=== PATIENT | female | born 1975 | race American Indian/Alaskan Native ===

== ENCOUNTER 2017-08-13 15:53 | Emergency (ER) | payer SELFPAY ==
[2017-08-13] MEDS ORDERED: ASPIRIN PO ONE (16:05)
[2017-08-13 16:21] LABS: Basophils # (Auto) 0.1 K/mm3 (0.0-0.1); Basophils % (Auto) 0.8 % (0.0-1.8); Eosinophils # (Auto) 0.1 K/mm3 (0.0-0.4); Eosinophils % (Auto) 0.8 % (0.0-4.3); Hemoglobin 13.7 gm/dl (10.1-14.3); Lymphocytes # (Auto) 1.7 K/mm3 (1.2-5.4); Lymphocytes % (Auto) 24.1 % (13.4-35.0); Mean Corpuscular HGB Conc 33 % (30-34); Mean Corpuscular Hemoglobin 32 pg (28-32); Mean Corpuscular Volume 96 fl (79-97); Monocytes # (Auto) 0.6 K/mm3 (0.0-0.8); Monocytes % (Auto) 7.7 % (0.0-7.3); Platelet Count 206 K/mm3 (140-440); Red Blood Count 4.27 M/mm3 (3.65-5.03); Red Cell Distribution Width 13.1 % (13.2-15.2)
[2017-08-13 16:38] LABS: BUN/Creatinine Ratio 13; Blood Urea Nitrogen 8 mg/dL (7-17); Calcium 8.7 mg/dL (8.4-10.2); Hemolysis Index 8
[2017-08-14 00:29] LABS: Chol/HDL Ratio 2.17 %
[2017-08-14] MEDS ORDERED: K-DUR PO ONE (00:30)
--- NOTE | 2017-08-14 00:33 | Emergency Department Report ---
ED Chest Pain HPI - General Chief Complaint: Chest Pain Stated Complaint: CHEST HEAVINESS Time Seen by Provider: 08/13/17 23:09 Source: patient Mode of arrival: Ambulatory Limitations: No Limitations - History of Present Illness Initial Comments: 42-year-old female with a past psychiatric history and previous history of hypertension that has since resolved presents to the Hospital complaint of intermittent chest pressure since yesterday. Episodes occur at rest. Patient states she gets chest heaviness in throbbing and then extends to her whole torso , bilateral arms, and bilateral legs. Patient has chills during episodes and feels lightheaded and shaky. As per triage patient had nausea, vomiting, and shortness of breath and she denies those associated symptoms currently. Patient also feels like the left-sided body is abnormal. Her left neck down to her leg and feels like it is swollen. Patient does smoke cigarettes. Hypertensive in 2010 but has been discontinued since her blood pressure improved. She denies drug use including cocaine. Denies family history of CAD , recent travel, leg asymmetry or edema, history of PE/DVT, or previous stress test. Patient does have a psychiatric history and took psychiatric medication up until her medications ran out in April. She states she's been diagnosed with eleazar and psychosis but has had different diagnosis from different doctors and can't recall the name of her previously prescribed medication. She does not have a primary care doctor. No chest pain at this time. Severity scale (0 -10): 0 - Related Data Previous Rx's Medication Instructions Recorded Last Taken Type Ibuprofen [Motrin] 600 mg PO Q8H PRN #30 tablet 08/14/17 Unknown Rx Allergies Allergy/AdvReac Type Severity Reaction Status Date / Time No Known Allergies Allergy Unverified 07/14/15 21:14 Heart Score - HEART Score History: Slightly suspicious EKG: Normal Age: < 45 Risk factors: 1-2 risk factors Troponin: < normal limit HEART Score: 1 ED Review of Systems ROS: Stated complaint: CHEST HEAVINESS Other details as noted in HPI Comment: All other systems reviewed and negative ED Past Medical Hx - Past Medical History Hx Psychiatric Treatment: Yes - Social History Smoking Status: Current Every Day Smoker - Medications Home Medications: Home Medications Medication Instructions Recorded Confirmed Last Taken Type Ibuprofen [Motrin] 600 mg PO Q8H PRN #30 tablet 08/14/17 Unknown Rx ED Physical Exam - General Limitations: No Limitations - Other Other exam information: General: No limitations, patient is alert in no acute distress Head exam: Atraumatic, normocephalic Eyes exam: Normal appearance, pupils equal reactive to light, extraocular movements intact ENT: Moist mucous membrane, normal oropharynx. Neck exam: Normal inspection, full range of motion, no meningismus nontender. No swelling noted Respiratory exam: Clear to auscultation bilateral, no wheezes, rales, crackles Cardiovascular: Normal rate and rhythm, normal heart sounds Abdomen: Soft, nondistended, and nontender, with normal bowel sounds, no rebound, or guarding Extremity: Full range of motion normal inspection no deformity, no tenderness or edema, no leg asymmetry Back: Normal Inspection, full range of motion, no tenderness Neurologic: Alert, oriented x3, cranial nerves intact, no motor or sensory deficit Psychiatric: normal affect, normal mood Skin: Warm, dry, intact ED Course Vital Signs 08/13/17 08/13/17 08/13/17 15:58 23:40 23:59 Temperature 98.4 F Pulse Rate 82 62 Respiratory 16 16 16 Rate Blood Pressure 132/74 Blood Pressure 120/72 [Left] O2 Sat by Pulse 100 99 Oximetry 08/14/17 00:51 Temperature Pulse Rate 62 Respiratory 16 Rate Blood Pressure Blood Pressure 123/42 [Left] O2 Sat by Pulse 99 Oximetry CLAYTON score - Clayton Score Age > 65: (0) No Aspirin use within the Past 7 Days: (0) No 3 or more CAD Risk Factors: (0) No 2 or more Angina events in past 24 hrs: (1) Yes Known CAD with more than 50% Stenosis: (0) No Elevated Cardiac Markers: (0) No ST Deviation Greater than 0.5mm: (0) No CLAYTON Score: 1 ED Medical Decision Making - Lab Data Result diagrams: 08/13/17 16:11 08/13/17 16:11 Lab Results 08/13/17 08/13/17 08/13/17 Range/Units 16:11 16:11 19:03 WBC 7.2 (4.5-11.0) K/mm3 RBC 4.27 (3.65-5.03) M/mm3 Hgb 13.7 (10.1-14.3) gm/dl Hct 41.0 (30.3-42.9) % MCV 96 (79-97) fl MCH 32 (28-32) pg MCHC 33 (30-34) % RDW 13.1 L (13.2-15.2) % Plt Count 206 (140-440) K/mm3 Lymph % (Auto) 24.1 (13.4-35.0) % [place] % (Auto) 7.7 H (0.0-7.3) % Eos % (Auto) 0.8 (0.0-4.3) % Baso % (Auto) 0.8 (0.0-1.8) % Lymph # 1.7 (1.2-5.4) K/mm3 [place] # 0.6 (0.0-0.8) K/mm3 Eos # 0.1 (0.0-0.4) K/mm3 Baso # 0.1 (0.0-0.1) K/mm3 Seg Neutrophils % 66.6 (40.0-70.0) % Seg Neutrophils # 4.8 (1.8-7.7) K/mm3 D-Dimer (0-234) ng/mlDDU Sodium 138 (137-145) mmol/L Potassium 3.4 L (3.6-5.0) mmol/L Chloride 101.7 (98-107) mmol/L Carbon Dioxide 26 (22-30) mmol/L Anion Gap 14 mmol/L BUN 8 (7-17) mg/dL Creatinine 0.6 L (0.7-1.2) mg/dL Estimated GFR > 60 ml/min BUN/Creatinine Ratio 13 % Glucose 94 (65-100) mg/dL Calcium 8.7 (8.4-10.2) mg/dL Troponin T < 0.010 < 0.010 (0.00-0.029) ng/mL Triglycerides (2-149) mg/dL Cholesterol (50-199) mg/dL LDL Cholesterol Direct (50-130) mg/dL HDL Cholesterol (40-59) mg/dL Cholesterol/HDL Ratio % HCG, Qual (Negative) 08/13/17 08/13/17 08/13/17 Range/Units 21:52 23:37 23:37 WBC (4.5-11.0) K/mm3 RBC (3.65-5.03) M/mm3 Hgb (10.1-14.3) gm/dl Hct (30.3-42.9) % MCV (79-97) fl MCH (28-32) pg MCHC (30-34) % RDW (13.2-15.2) % Plt Count (140-440) K/mm3 Lymph % (Auto) (13.4-35.0) % [place] % (Auto) (0.0-7.3) % Eos % (Auto) (0.0-4.3) % Baso % (Auto) (0.0-1.8) % Lymph # (1.2-5.4) K/mm3 [place] # (0.0-0.8) K/mm3 Eos # (0.0-0.4) K/mm3 Baso # (0.0-0.1) K/mm3 Seg Neutrophils % (40.0-70.0) % Seg Neutrophils # (1.8-7.7) K/mm3 D-Dimer 297.03 H (0-234) ng/mlDDU Sodium (137-145) mmol/L Potassium (3.6-5.0) mmol/L Chloride (98-107) mmol/L Carbon Dioxide (22-30) mmol/L Anion Gap mmol/L BUN (7-17) mg/dL Creatinine (0.7-1.2) mg/dL Estimated GFR ml/min BUN/Creatinine Ratio % Glucose (65-100) mg/dL Calcium (8.4-10.2) mg/dL Troponin T < 0.010 (0.00-0.029) ng/mL Triglycerides 57 (2-149) mg/dL Cholesterol 126 (50-199) mg/dL LDL Cholesterol Direct 66 (50-130) mg/dL HDL Cholesterol 58 (40-59) mg/dL Cholesterol/HDL Ratio 2.17 % HCG, Qual (Negative) 08/13/17 Range/Units 23:37 WBC (4.5-11.0) K/mm3 RBC (3.65-5.03) M/mm3 Hgb (10.1-14.3) gm/dl Hct (30.3-42.9) % MCV (79-97) fl MCH (28-32) pg MCHC (30-34) % RDW (13.2-15.2) % Plt Count (140-440) K/mm3 Lymph % (Auto) (13.4-35.0) % [place] % (Auto) (0.0-7.3) % Eos % (Auto) (0.0-4.3) % Baso % (Auto) (0.0-1.8) % Lymph # (1.2-5.4) K/mm3 [place] # (0.0-0.8) K/mm3 Eos # (0.0-0.4) K/mm3 Baso # (0.0-0.1) K/mm3 Seg Neutrophils % (40.0-70.0) % Seg Neutrophils # (1.8-7.7) K/mm3 D-Dimer (0-234) ng/mlDDU Sodium (137-145) mmol/L Potassium (3.6-5.0) mmol/L Chloride (98-107) mmol/L Carbon Dioxide (22-30) mmol/L Anion Gap mmol/L BUN (7-17) mg/dL Creatinine (0.7-1.2) mg/dL Estimated GFR ml/min BUN/Creatinine Ratio % Glucose (65-100) mg/dL Calcium (8.4-10.2) mg/dL Troponin T (0.00-0.029) ng/mL Triglycerides (2-149) mg/dL Cholesterol (50-199) mg/dL LDL Cholesterol Direct (50-130) mg/dL HDL Cholesterol (40-59) mg/dL Cholesterol/HDL Ratio % HCG, Qual Negative (Negative) - EKG Data -: EKG Interpreted by Ga EKG shows normal: sinus rhythm, axis (qrs 64), QRS complexes (qrsd 82), ST-T waves (nos oliva/t inv) Rate: normal (68) - EKG Data When compared to previous EKG there are: previous EKG unavailable 08/14/17 01:37 repeat ekg without acute changes - Radiology Data Radiology results: report reviewed read by radiology cxr: naf ct angio chest: naf - Medical Decision Making Patient has atypical symptoms of chest pain with generalization of her symptoms to other parts of her body. Patient's major cardiac risk factor is smoking and she scored low on heart and CLAYTON scores. Patient had a 3 negative cardiac enzymes. Repeat ekg unchanged. Although d-dimer mildly elevated patient does not have any PE/DVT risk factors and has a negative CT angiogram chest. Patient received by mouth potassium for mild hypokalemia. Pain free in ed - Differential Diagnosis anxiety, MA, PE, atypical chest Critical Care Time: No Critical care attestation.: If time is entered above; I have spent that time in minutes in the direct care of this critically ill patient, excluding procedure time. ED Disposition Clinical Impression: Atypical chest pain, Hypokalemia Disposition: TO HOME OR SELFCARE Is pt being admited?: No Does the pt Need Aspirin: No Condition: Stable Instructions: Chest Pain (ED), Hypokalemia (ED) Additional Instructions: Take the medication as prescribed. Follow up with the clinic or doctor provided. Return if symptoms worsen Prescriptions: Ibuprofen [Motrin] 600 mg PO Q8H PRN #30 tablet PRN Reason: Pain Referrals: PK JEAN MD [Staff Physician] - 3-5 Days (Primary care doctor) [facility] [Provider Group] - 3-5 Days (Primary care clinic) Time of Disposition: 01:37
[2017-08-14 00:53] VITALS: BP 123/42
--- NOTE | 2017-08-14 01:18 | XRay Report ---
FINAL REPORT PROCEDURE: XR CHEST ROUTINE 2V TECHNIQUE: PA and lateral chest radiographs were obtained. CPT 22547 HISTORY: sob, cp COMPARISON: No prior studies are available for comparison. FINDINGS: Heart: Normal. Mediastinum/Vessels: Normal. Lungs/Pleural space: Normal. Bony thorax: No acute osseous abnormality. Other: IMPRESSION: Normal examination.
--- NOTE | 2017-08-14 01:21 | Cat Scan Report ---
FINAL REPORT PROCEDURE: CT ANGIO CHEST TECHNIQUE: Computerized axial tomographic angiography of the chest and pulmonary arteries was performed after the IV injection of iodinated nonionic contrast. The image data was postprocessed using maximum intensity projection (MIP) and 2-dimensional multiplanar reformatted (MPR) techniques. The examination is specifically tailored to the evaluation of the pulmonary arteries per clinical request. HISTORY: Short of breath 786.09, chest pain 786.50, cp. mild ddimer elevation COMPARISON: No prior studies are available for comparison. FINDINGS: Heart and pericardium: Normal. Thoracic aorta: Normal. Pulmonary vasculature: Normal. No pulmonary emboli. Lymph nodes: No enlarged thoracic lymph nodes. Lungs: Normal. Pleural space: No effusion, thickening, or pneumothorax. Musculoskeletal structures: No significant abnormality. Upper abdominal structures: No significant abnormality. IMPRESSION: There is no pulmonary embolism. There is no thoracic aortic aneurysm or dissection. The lungs are clear and expanded. There are no infiltrates, effusions or pneumothoraces..
== END 2017-08-14 01:55 | disposition home or self-care (01) ==
LOC: ED 15:53
DX: R07.89 Other chest pain (principal); E87.6 Hypokalemia; F17.200 Nicotine dependence, unspecified, uncomplicated
CPT/HCPCS: 36415; 71046; 71275; 80048; 80061; 84484; 84703; 85025; 85379; 93005; 93010; 99285; Q9967

== ENCOUNTER 2017-08-14 04:53 | Emergency (ER) | payer SELFPAY ==
[2017-08-14 06:40] LABS: Basophils # (Auto) 0.1 K/mm3 (0.0-0.1); Basophils % (Auto) 0.9 % (0.0-1.8); Eosinophils # (Auto) 0.1 K/mm3 (0.0-0.4); Hematocrit 42.8 % (30.3-42.9); Hemoglobin 14.5 gm/dl (10.1-14.3); Lymphocytes # (Auto) 1.7 K/mm3 (1.2-5.4); Lymphocytes % (Auto) 23.5 % (13.4-35.0); Mean Corpuscular HGB Conc 34 % (30-34); Mean Corpuscular Hemoglobin 33 pg (28-32); Mean Corpuscular Volume 96 fl (79-97); Monocytes # (Auto) 0.6 K/mm3 (0.0-0.8); Monocytes % (Auto) 8.2 % (0.0-7.3); Platelet Count 205 K/mm3 (140-440); Red Blood Count 4.47 M/mm3 (3.65-5.03); Red Cell Distribution Width 13.4 % (13.2-15.2)
[2017-08-14 07:02] LABS: BUN/Creatinine Ratio 12; Blood Urea Nitrogen 7 mg/dL (7-17); Calcium 9.1 mg/dL (8.4-10.2); Hemolysis Index 13
[2017-08-14 07:49] LABS: Bilirubin,Urine NEG (Negative); Blood,Urine LG (Negative); Color,Urine Yellow (Yellow); Protein,Urine <15 mg/dL mg/dL (Negative); Urobilinogen,Urine < 2.0 mg/dL (<2.0); WBC,Urine < 1.0 /HPF (0.0-6.0)
[2017-08-14 08:02] LABS: Amphetamine Screen,Urine PRESUMPTIVE NEGATIVE; Benzodiazepines Screen,Urine PRESUMPTIVE NEGATIVE; Cannabinoid Screen,Urine PRESUMPTIVE NEGATIVE; Cocaine Screen,Urine PRESUMPTIVE NEGATIVE; Methadone Screen,Urine PRESUMPTIVE NEGATIVE; Opiate Screen,Urine PRESUMPTIVE NEGATIVE
--- NOTE | 2017-08-14 13:38 | Emergency Department Report ---
ED Psych HPI - General Chief Complaint: Psych Stated Complaint: MENTAL HEALTH Time Seen by Provider: 08/14/17 13:17 Source: patient Mode of arrival: Ambulatory - History of Present Illness Initial Comments: Patient is 42 years old female history of schizophrenia. Patient presented to the ER complaining of hearing voices asking to hurt herself by drug overdose. Patient had history of drug overdose before. She denied any visual hallucinations. Patient also denied any homicidal ideation. MD Complaint: suicidal ideation - Related Data Previous Rx's Medication Instructions Recorded Last Taken Type Ibuprofen [Motrin] 600 mg PO Q8H PRN #30 tablet 08/14/17 Unknown Rx Allergies Allergy/AdvReac Type Severity Reaction Status Date / Time No Known Allergies Allergy Unverified 07/14/15 21:14 ED Review of Systems ROS: Stated complaint: MENTAL HEALTH Other details as noted in HPI Comment: All other systems reviewed and negative Constitutional: denies: chills, fever Respiratory: denies: cough, orthopnea, shortness of breath, SOB with exertion, SOB at rest, wheezing Cardiovascular: denies: chest pain, palpitations, dyspnea on exertion Gastrointestinal: denies: abdominal pain, nausea, vomiting, diarrhea, constipation, hematemesis, melena, hematochezia Genitourinary: denies: urgency, dysuria, frequency, hematuria, discharge, abnormal menses Musculoskeletal: denies: back pain Neurological: denies: headache, weakness, numbness, paresthesias, confusion Psychiatric: auditory hallucinations, suicidal thoughts ED Past Medical Hx - Past Medical History Previous Medical History?: Yes Hx Psychiatric Treatment: Yes (psychosis, depression, anxiety eleazar) - Surgical History Past Surgical History?: Yes Additional Surgical History: c sect X1 - Social History Smoking Status: Current Every Day Smoker Substance Use Type: None - Medications Home Medications: Home Medications Medication Instructions Recorded Confirmed Last Taken Type Ibuprofen [Motrin] 600 mg PO Q8H PRN #30 tablet 08/14/17 Unknown Rx ED Physical Exam - General Limitations: No Limitations General appearance: alert, in no apparent distress - Head Head exam: Present: atraumatic, normocephalic - Eye Eye exam: Present: normal appearance, PERRL - ENT ENT exam: Present: normal exam, normal orophraynx, mucous membranes moist, normal external ear exam - Neck Neck exam: Present: normal inspection, full ROM. Absent: tenderness, meningismus, lymphadenopathy, thyromegaly - Respiratory Respiratory exam: Present: normal lung sounds bilaterally. Absent: respiratory distress, wheezes, rales, rhonchi, chest wall tenderness, accessory muscle use, decreased breath sounds, prolonged expiratory - Cardiovascular Cardiovascular Exam: Present: regular rate, normal rhythm, normal heart sounds - GI/Abdominal GI/Abdominal exam: Present: soft, normal bowel sounds. Absent: distended, tenderness, guarding, rebound, rigid, organomegaly, mass, bruit, pulsatile mass - Extremities Exam Extremities exam: Present: normal inspection, full ROM, normal capillary refill - Neurological Exam Neurological exam: Present: alert, oriented X3, CN II-XII intact, normal gait - Psychiatric Psychiatric exam: Present: anxious, suicidal ideation - Skin Skin exam: Present: warm, intact, normal color ED Course Vital Signs 08/14/17 08/14/17 05:43 10:47 Temperature 98.5 F 98.4 F Pulse Rate 68 71 Respiratory 18 18 Rate Blood Pressure 115/75 130/75 O2 Sat by Pulse 99 98 Oximetry ED Medical Decision Making - Lab Data Result diagrams: 08/14/17 06:11 08/14/17 06:11 Critical care attestation.: If time is entered above; I have spent that time in minutes in the direct care of this critically ill patient, excluding procedure time. ED Disposition Clinical Impression: Acute psychosis, Suicidal thoughts Disposition: [id number]/TX-[id number] PSY HOSP/PSY UNIT Is pt being admited?: No Condition: Stable Referrals: PRIMARY CARE, [Primary Care Provider] - 3-5 Days
[2017-08-14] MEDS ORDERED: GEODON PO ONE (15:49)
[2017-08-15 09:06] VITALS: BP 102/66
[2017-08-15] MEDS ORDERED: VISTARIL PO ONE (17:49)
== END 2017-08-15 22:21 ==
LOC: EEVIPCON 04:53 → ED 04:53
DX: F23 Brief psychotic disorder (principal); R45.851 Suicidal ideations; F32.9 Major depressive disorder, single episode, unspecified; F41.9 Anxiety disorder, unspecified; F17.200 Nicotine dependence, unspecified, uncomplicated
CPT/HCPCS: 36415; 80048; 80307; 81001; 85025; 99285; G0480; 80320; Q0177

== ENCOUNTER 2017-10-08 12:20 | Emergency (ER) | payer SELFPAY ==
[2017-10-08 13:20] LABS: Basophils # (Auto) 0.1 K/mm3 (0.0-0.1); Basophils % (Auto) 0.8 % (0.0-1.8); Eosinophils % (Auto) 0.6 % (0.0-4.3); Hematocrit 41.2 % (30.3-42.9); Lymphocytes # (Auto) 1.6 K/mm3 (1.2-5.4); Lymphocytes % (Auto) 20.1 % (13.4-35.0); Mean Corpuscular HGB Conc 34 % (30-34); Mean Corpuscular Hemoglobin 33 pg (28-32); Mean Corpuscular Volume 97 fl (79-97); Monocytes # (Auto) 0.6 K/mm3 (0.0-0.8); Monocytes % (Auto) 7.5 % (0.0-7.3); Platelet Count 201 K/mm3 (140-440); Red Blood Count 4.27 M/mm3 (3.65-5.03); Red Cell Distribution Width 13.3 % (13.2-15.2)
[2017-10-08 13:22] LABS: Bilirubin,Urine NEG (Negative); Blood,Urine NEG (Negative); Color,Urine Yellow (Yellow); Hyaline Casts,Urine 1 /LPF; Protein,Urine <15 mg/dL mg/dL (Negative); Urobilinogen,Urine < 2.0 mg/dL (<2.0)
[2017-10-08 13:27] LABS: HCG Qualitative,Urine Negative (Negative)
[2017-10-08] MEDS ORDERED: BENADRYL IM PRN (13:27)
[2017-10-08] MEDS ORDERED: ATIVAN IM PRN (13:27)
[2017-10-08 13:32] LABS: Amphetamine Screen,Urine PRESUMPTIVE NEGATIVE; Benzodiazepines Screen,Urine PRESUMPTIVE NEGATIVE; Cannabinoid Screen,Urine PRESUMPTIVE NEGATIVE; Cocaine Screen,Urine PRESUMPTIVE NEGATIVE; Methadone Screen,Urine PRESUMPTIVE NEGATIVE; Opiate Screen,Urine PRESUMPTIVE NEGATIVE
--- NOTE | 2017-10-08 13:32 | Emergency Department Report ---
HPI - General Chief Complaint: Psych Time Seen by Provider: 10/08/17 13:03 - HPI HPI: Room 11 The patient is a 42-year-old female presenting with chief complaint of auditory hallucinations. The patient states for the past 2 months she's had auditory hallucinations the patient states that the hallucinations have been threatening her and telling her to harm herself. They she's been compliant with her medication which includes Risperdal, Zoloft and trazodone. Patient states she does not have a plan to harm herself and has not attempted to harm herself. The patient states she was concerned about harming herself so she decided to come to the ED. Location: Mental state Duration: 2 Months Quality: Hallucinations Severity: Severe Modifying factors: [see above] Context: [see above] Mode of transportation: [not driving] ED Past Medical Hx - Past Medical History Hx Psychiatric Treatment: Yes (schizophrenia, psychosis, depression, anxiety eleazar) - Surgical History Additional Surgical History: c sect X1 - Family History Family history: no significant - Social History Smoking Status: Current Every Day Smoker (more than one pack per day) Substance Use Type: None (denies illicit drug use) - Medications Home Medications: Home Medications Medication Instructions Recorded Confirmed Last Taken Type Ibuprofen [Motrin] 600 mg PO Q8H PRN #30 tablet 08/14/17 08/15/17 Unknown Rx ED Review of Systems ROS: Stated complaint: MENTAL HEALTH CRISIS Other details as noted in HPI Constitutional: no symptoms reported Musculoskeletal: myalgia Psychiatric: visual hallucinations Physical Exam - Physical Exam Vital Signs: Vital Signs 10/08/17 12:45 Temperature 98.9 F Pulse Rate 72 Respiratory 16 Rate Blood Pressure 117/71 O2 Sat by Pulse 98 Oximetry Physical Exam: GENERAL: The patient is well-developed well-nourished female lying on stretcher not appearing to be in acute distress. [] HEENT: Normocephalic. Atraumatic. Extraocular motions are intact. Patient has moist mucous membranes. NECK: Supple. No meningitic signs are noted. Trachea midline CHEST/LUNGS: Clear to auscultation. There is no respiratory distress noted. HEART/CARDIOVASCULAR: Regular. There is no tachycardia. There is no gallop rub or murmur. ABDOMEN: Abdomen is soft, nontender. Patient has normal bowel sounds. There is no abdominal distention. SKIN: There is no rash. There is no edema. There is no diaphoresis. NEURO: The patient is awake, alert, and oriented. The patient is cooperative. The patient has no focal neurologic deficits. The patient has normal speech. Cranial nerves II through XII grossly intact MUSCULOSKELETAL: There is no evidence of acute injury. ED Course Vital Signs 10/08/17 12:45 Temperature 98.9 F Pulse Rate 72 Respiratory 16 Rate Blood Pressure 117/71 O2 Sat by Pulse 98 Oximetry ED Medical Decision Making - Lab Data Result diagrams: 10/08/17 13:03 10/08/17 13:03 Laboratory Tests 10/08/17 10/08/17 10/08/17 13:00 13:00 13:03 WBC RBC Hgb Hct MCV MCH MCHC RDW Plt Count Lymph % (Auto) [place] % (Auto) Eos % (Auto) Baso % (Auto) Lymph # [place] # Eos # Baso # Seg Neutrophils % Seg Neutrophils # Sodium Potassium Chloride Carbon Dioxide Anion Gap BUN Creatinine Estimated GFR BUN/Creatinine Ratio Glucose Calcium Urine Color Yellow Urine Turbidity Clear Urine pH 7.0 Ur Specific Harris 1.012 Urine Protein <15 mg/dl Urine Glucose (UA) Neg Urine Ketones Neg Urine Blood Neg Urine Nitrite Neg Urine Bilirubin Neg Urine Urobilinogen < 2.0 Ur Leukocyte Esterase Neg Urine WBC (Auto) 1.0 Urine RBC (Auto) 2.0 U Epithel Cells (Auto) 1.0 Hyaline Casts 1 Urine HCG, Qual Negative Salicylates < 0.3 L Urine Opiates Screen Presumptive negative Urine Methadone Screen Presumptive negative Acetaminophen Ur Barbiturates Screen Presumptive negative Ur Phencyclidine Scrn Presumptive negative Ur Amphetamines Screen Presumptive negative U Benzodiazepines Scrn Presumptive negative Urine Cocaine Screen Presumptive negative U Marijuana (THC) Screen Presumptive negative Drugs of Abuse Note Disclamer Plasma/Serum Alcohol 10/08/17 10/08/17 10/08/17 13:03 13:03 13:03 WBC RBC Hgb Hct MCV MCH MCHC RDW Plt Count Lymph % (Auto) [place] % (Auto) Eos % (Auto) Baso % (Auto) Lymph # [place] # Eos # Baso # Seg Neutrophils % Seg Neutrophils # Sodium 139 Potassium 3.1 L Chloride 99.5 Carbon Dioxide 28 Anion Gap 15 BUN 6 L Creatinine 0.6 L Estimated GFR > 60 BUN/Creatinine Ratio 10 Glucose 76 Calcium 9.2 Urine Color Urine Turbidity Urine pH Ur Specific Harris Urine Protein Urine Glucose (UA) Urine Ketones Urine Blood Urine Nitrite Urine Bilirubin Urine Urobilinogen Ur Leukocyte Esterase Urine WBC (Auto) Urine RBC (Auto) U Epithel Cells (Auto) Hyaline Casts Urine HCG, Qual Salicylates Urine Opiates Screen Urine Methadone Screen Acetaminophen < 5.0 L Ur Barbiturates Screen Ur Phencyclidine Scrn Ur Amphetamines Screen U Benzodiazepines Scrn Urine Cocaine Screen U Marijuana (THC) Screen Drugs of Abuse Note Plasma/Serum Alcohol < 0.01 10/08/17 13:03 WBC 8.0 RBC 4.27 Hgb 14.0 Hct 41.2 MCV 97 MCH 33 H MCHC 34 RDW 13.3 Plt Count 201 Lymph % (Auto) 20.1 [place] % (Auto) 7.5 H Eos % (Auto) 0.6 Baso % (Auto) 0.8 Lymph # 1.6 [place] # 0.6 Eos # 0.0 Baso # 0.1 Seg Neutrophils % 71.0 H Seg Neutrophils # 5.7 Sodium Potassium Chloride Carbon Dioxide Anion Gap BUN Creatinine Estimated GFR BUN/Creatinine Ratio Glucose Calcium Urine Color Urine Turbidity Urine pH Ur Specific Harris Urine Protein Urine Glucose (UA) Urine Ketones Urine Blood Urine Nitrite Urine Bilirubin Urine Urobilinogen Ur Leukocyte Esterase Urine WBC (Auto) Urine RBC (Auto) U Epithel Cells (Auto) Hyaline Casts Urine HCG, Qual Salicylates Urine Opiates Screen Urine Methadone Screen Acetaminophen Ur Barbiturates Screen Ur Phencyclidine Scrn Ur Amphetamines Screen U Benzodiazepines Scrn Urine Cocaine Screen U Marijuana (THC) Screen Drugs of Abuse Note Plasma/Serum Alcohol - Differential Diagnosis schizophrenia, auditory hallucinations Critical care attestation.: If time is entered above; I have spent that time in minutes in the direct care of this critically ill patient, excluding procedure time. ED Disposition Clinical Impression: Schizophrenia, Auditory hallucinations, Hypokalemia Disposition: DC/[id number] PSY HOSP/PSY UNIT Is pt being admited?: No Does the pt Need Aspirin: No Condition: Serious Referrals: PRIMARY CARE, [Primary Care Provider] - 3-5 Days Time of Disposition: 13:53 (awaiting acceptance)
[2017-10-08 13:42] LABS: BUN/Creatinine Ratio 10; Blood Urea Nitrogen 6 mg/dL (7-17); Calcium 9.2 mg/dL (8.4-10.2); Hemolysis Index 10
[2017-10-08] MEDS ORDERED: ATIVAN PO ONE ×2 (13:52→17:00)
[2017-10-08] MEDS ORDERED: K-DUR PO ONE ×2 (13:52→17:00)
[2017-10-08] MEDS: DESYREL PO SCH (23:13)
[2017-10-09] MEDS: RisperDAL PO SCH (09:32)
[2017-10-09] MEDS: ZOLOFT PO SCH (09:32)
[2017-10-09] MEDS ORDERED: BABY ASPIRIN PO ONE (17:13)
[2017-10-09] MEDS: DESYREL PO SCH (22:30)
[2017-10-10] MEDS: RisperDAL PO SCH (09:36)
[2017-10-10] MEDS: ZOLOFT PO SCH (09:36)
--- NOTE | 2017-10-10 20:11 | Consultation ---
History of Present Illness - Reason for Consult Consult date: 10/10/17 Reason for consult: Mental Health Evaluation Requesting physician: RAMON CROWLEY - Chief Complaint Chief complaint: "The voices are overwhelming" - History of Present Psychiatric Illness 42-year-old female presenting with chief complaint of auditory hallucinations. Today the patient is calm and cooperative during the assessment. She stated that the voices she is hearing are telling her to kill herself. She stated that she was a patient at [facility] a month ago. She stated that it's difficult ignoring the voices. She would not confirm or deny being suicidal when asked. The patient whispered throughout the interview, possibly experiencing paranoia. She denies HI's and VH's. She acknowledged erratic sleep , but denies a poor appetite. She denies recreational drug use and alcohol consumption (etoh). Medications and Allergies Allergies Allergy/AdvReac Type Severity Reaction Status Date / Time No Known Allergies Allergy Unverified 07/14/15 21:14 Home Medications Medication Instructions Recorded Confirmed Last Taken Type Ibuprofen [Motrin] 600 mg PO Q8H PRN #30 tablet 08/14/17 08/15/17 Unknown Rx Active Meds: Active Medications Diphenhydramine HCl (Benadryl) 50 mg IM Q6H PRN PRN Reason: Agitation Lorazepam (Ativan) 2 mg IM Q8H PRN PRN Reason: Agitation Last Admin: 10/09/17 17:59 Dose: 2 mg Risperidone (Risperdal) 3 mg PO QDAY [facility] Last Admin: 10/10/17 09:36 Dose: 3 mg Sertraline HCl (Zoloft) 50 mg PO QDAY [facility] Last Admin: 10/10/17 09:36 Dose: 50 mg Trazodone HCl (Desyrel) 50 mg PO QHS [facility] Last Admin: 10/09/17 22:30 Dose: 50 mg Past psychiatric history - Past Medical History Past Medical History: No medical history Past Surgical History: - past Psychiatric treatment and history psychiatric treatment history: Several inpatient psy settings. Denies a fam psy hx. - Social History Social history: other (Reside at a hotel) Mental Status Exam - Vital signs Last Vital Signs Temp 98.6 F 10/09/17 20:04 Pulse 87 10/10/17 08:42 Resp 16 10/09/17 20:04 BP 97/66 10/10/17 08:42 Pulse Ox 97 10/10/17 08:42 - Exam Narrative exam: MSE: Appearance: calm, cooperative Behavior: regular eye contact Speech: whispering Mood: labile Affect: congruent to mood Thought Process: circumstantial Thought Content: denies HI's and VH's, she will confirm or deny SI's, paranoia Motor Activity: ambulatory Cognition: A/O x 3 Insight: fair Judgment: variable Results Result Diagrams: 10/08/17 13:03 10/08/17 13:03 All other labs normal. Assessment and Plan Assessment and plan: Impression: Unspecified Mood DO with psy features. Today the patient is calm and cooperative during the assessment. UDS is negative. The patient would not confirm or deny SI's. DDx: Bipolar DO with psychosis, R/O Schizoaffective DO, R/O MDD with psychosis Recommendation/Plan: Continue 1013 with placement to inpatient psy services. Continue her medications (Trazdone, Zoloft, and Risperdal). Discussed possible suicidality/medication induced eleazar with patient reference antidepressants. Discussed possible metabolic side effects of Risperdal with patient.
[2017-10-10] MEDS: DESYREL PO SCH (22:05)
[2017-10-11 09:44] VITALS: BP 102/64
[2017-10-11] MEDS: ZOLOFT PO SCH (10:15)
--- NOTE | 2017-10-11 14:21 | Progress Note ---
Subjective - Reason for Consult Consult date: 10/11/17 Reason for consult: Psychiatry Follow-up - Chief Complaint Chief complaint: "I think I'm getting better" 42-year-old female presenting with chief complaint of auditory hallucinations. Today the patient is calm and cooperative during the assessment. The patient is more lucid and stated that the voices are not as active as they were when admitted to the hospital. She stated that she want help"mentally so she can live a "normal life." She stated that she look forward to getting her job back once stable. She denies SI/HI's and VH's. She denies any side effects of her medications. Mental Status Exam - Vital signs Last Vital Signs Temp 98.1 F 10/11/17 09:43 Pulse 74 10/11/17 09:43 Resp 18 10/11/17 09:43 BP 102/64 10/11/17 09:43 Pulse Ox 99 10/11/17 09:43 - Exam Narrative exam: MSE: Appearance: calm, cooperative Behavior: regular eye contact Speech: regular rate and tone Mood: "okay" Affect: congruent to mood Thought Process: circumstantial Thought Content: denies SI/HI's and VH's, intermittent AH's Motor Activity: ambulatory Cognition: A/O x 3 Insight: fair Judgment: variable Assessment and Plan Impression: Unspecified Mood DO with psy features. Today the patient is calm and cooperative during the assessment. UDS is negative. DDx: Bipolar DO with psychosis, R/O Schizoaffective DO, R/O MDD with psychosis Recommendation/Plan: Continue 1013 with placement to inpatient psy services. Continue her medications (Trazdone, Zoloft, and Risperdal). Discussed possible suicidality/medication induced eleazar with patient reference antidepressants. Discussed possible metabolic side effects of Risperdal with patient.
[2017-10-11] MEDS ORDERED: RisperDAL PO SCH (22:00)
== END 2017-10-11 19:05 ==
LOC: ED 12:20 → EEVIPCON 12:20 → ED 10-11 19:05
DX: F20.9 Schizophrenia, unspecified (principal); E87.6 Hypokalemia; F32.9 Major depressive disorder, single episode, unspecified; F41.9 Anxiety disorder, unspecified; F17.200 Nicotine dependence, unspecified, uncomplicated
CPT/HCPCS: 36415; 80048; 80307; 81001; 81025; 84484; 85025; 96372; 99285; G0480; J2060; 80320

== ENCOUNTER 2018-04-24 14:04 | Emergency (ER) | payer MEDICAID ==
[2018-04-24 14:41] LABS: Basophils # (Auto) 0.1 K/mm3 (0.0-0.1); Basophils % (Auto) 1.9 % (0.0-1.8); Eosinophils # (Auto) 0.1 K/mm3 (0.0-0.4); Eosinophils % (Auto) 0.7 % (0.0-4.3); Lymphocytes % (Auto) 25.9 % (13.4-35.0); Mean Corpuscular HGB Conc 36 % (30-34); Mean Corpuscular Volume 96 fl (79-97); Monocytes # (Auto) 0.5 K/mm3 (0.0-0.8); Monocytes % (Auto) 6.4 % (0.0-7.3); Platelet Count 194 K/mm3 (140-440); Red Blood Count 4.08 M/mm3 (3.65-5.03); Red Cell Distribution Width 13.1 % (13.2-15.2)
[2018-04-24 14:47] LABS: Hemoglobin 14.1 gm/dl (10.1-14.3)
[2018-04-24 15:02] LABS: BUN/Creatinine Ratio 7; Blood Urea Nitrogen 4 mg/dL (7-17); Calcium 9.3 mg/dL (8.4-10.2); Hemolysis Index 3
[2018-04-24 15:34] LABS: Amphetamine Screen,Urine PRESUMPTIVE NEGATIVE; Bacteria,Urine 2+ /HPF (Negative); Benzodiazepines Screen,Urine PRESUMPTIVE NEGATIVE; Bilirubin,Urine NEG (Negative); Blood,Urine NEG (Negative); Cannabinoid Screen,Urine PRESUMPTIVE NEGATIVE; Cocaine Screen,Urine PRESUMPTIVE NEGATIVE; Color,Urine Amber (Yellow); Methadone Screen,Urine PRESUMPTIVE NEGATIVE; Opiate Screen,Urine PRESUMPTIVE NEGATIVE; Protein,Urine <15 mg/dL mg/dL (Negative); Urobilinogen,Urine < 2.0 mg/dL (<2.0)
[2018-04-24] MEDS ORDERED: K-DUR PO ONE (15:38)
--- NOTE | 2018-04-24 16:05 | Emergency Department Report ---
ED Psych HPI - General Chief Complaint: Medical Clearance Stated Complaint: MENTAL HEALTH Time Seen by Provider: 04/24/18 15:31 Source: patient Mode of arrival: Ambulatory - History of Present Illness Initial Comments: This is a 42-year-old female with history of schizophrenia. She has been to this facility before and stabilized in the emergency department over the course of a few days and released. She [facility]. She states she goes to the [facility]. She states that her psychiatrist recently increased her respiratory doubt to 4 mg twice a day. She states she is compliant taking the last pill this morning. Despite this she states that the voices are persistent and that she has "physical symptoms". She cannot specify which showed physical symptoms are bothering her. She simply states "all of them". Complaint: suicidal ideation -: days(s) Associated Psychiatric Symptoms: none History of same: No Quality: intermittent Improves With: none Worsens With: none Associated Symptoms: denies other symptoms Treatments Prior to Arrival: none If Self Harm: admits thoughts of - Related Data Previous Rx's Medication Instructions Recorded Last Taken Type Ibuprofen [Motrin] 600 mg PO Q8H PRN #30 tablet 08/14/17 Unknown Rx Allergies Allergy/AdvReac Type Severity Reaction Status Date / Time No Known Allergies Allergy Unverified 07/14/15 21:14 ED Review of Systems ROS: Stated complaint: MENTAL HEALTH Other details as noted in HPI Constitutional: denies: chills, fever Eyes: denies: eye pain, eye discharge, vision change ENT: denies: ear pain, throat pain Respiratory: denies: cough, shortness of breath, wheezing Cardiovascular: denies: chest pain, palpitations Endocrine: no symptoms reported Gastrointestinal: denies: abdominal pain, nausea, diarrhea Genitourinary: denies: urgency, dysuria, discharge Musculoskeletal: denies: back pain, joint swelling, arthralgia Skin: denies: rash, lesions Neurological: denies: headache, weakness, paresthesias Psychiatric: denies: anxiety, depression Hematological/Lymphatic: denies: easy bleeding, easy bruising ED Past Medical Hx - Past Medical History Previous Medical History?: Yes Hx Psychiatric Treatment: Yes (schizophrenia, psychosis, depression, anxiety eleazar) - Surgical History Past Surgical History?: Yes Additional Surgical History: c sect X1 - Social History Smoking Status: Current Every Day Smoker Substance Use Type: None - Medications Home Medications: Home Medications Medication Instructions Recorded Confirmed Last Taken Type Ibuprofen [Motrin] 600 mg PO Q8H PRN #30 tablet 08/14/17 10/10/17 Unknown Rx ED Physical Exam - General Limitations: No Limitations General appearance: alert, in no apparent distress - Head Head exam: Present: atraumatic, normocephalic - Eye Eye exam: Present: normal appearance. Absent: scleral icterus - ENT ENT exam: Present: mucous membranes moist - Neck Neck exam: Present: normal inspection. Absent: tenderness, meningismus - Respiratory Respiratory exam: Present: normal lung sounds bilaterally. Absent: respiratory distress - Cardiovascular Cardiovascular Exam: Present: regular rate, normal rhythm. Absent: systolic murmur, diastolic murmur, rubs, gallop - GI/Abdominal GI/Abdominal exam: Present: soft, normal bowel sounds. Absent: distended, tenderness, guarding, rebound, rigid - Extremities Exam Extremities exam: Present: normal inspection - Back Exam Back exam: Present: normal inspection - Neurological Exam Neurological exam: Present: alert, oriented X3, CN II-XII intact. Absent: motor sensory deficit - Psychiatric Psychiatric exam: Present: normal affect, normal mood - Skin Skin exam: Present: warm, dry, intact, normal color. Absent: rash ED Course Vital Signs 04/24/18 14:12 Temperature 98.6 F Pulse Rate 101 H Respiratory 18 Rate Blood Pressure 119/70 O2 Sat by Pulse 98 Oximetry - Reevaluation(s) Reevaluation #1: She is referred to the mental health counselor. 1013 has been initiated. She will be continued on her respiratory when necessary Geodon and Ativan. She is not agitated at the moment. She will be evaluated by the psychiatry staff for ongoing care and/or mental health transfer. She was given by mouth potassium as her level was mildly low. 04/24/18 16:23 ED Medical Decision Making - Lab Data Result diagrams: 04/24/18 14:25 04/24/18 14:25 Laboratory Results - last 24 hr 04/24/18 04/24/18 04/24/18 14:25 14:25 14:25 WBC RBC Hgb Hct MCV MCH MCHC RDW Plt Count Lymph % (Auto) [place] % (Auto) Eos % (Auto) Baso % (Auto) Lymph # [place] # Eos # Baso # Seg Neutrophils % Seg Neutrophils # Sodium 141 Potassium 3.2 L Chloride 101.9 Carbon Dioxide 27 Anion Gap 15 BUN 4 L Creatinine 0.6 L Estimated GFR > 60 BUN/Creatinine Ratio 7 Glucose 112 H Calcium 9.3 Magnesium Urine Color Urine Turbidity Urine pH Ur Specific Crary Urine Protein Urine Glucose (UA) Urine Ketones Urine Blood Urine Nitrite Urine Bilirubin Urine Urobilinogen Ur Leukocyte Esterase Urine WBC (Auto) Urine RBC (Auto) U Epithel Cells (Auto) Urine Bacteria (Auto) Salicylates < 0.3 L Urine Opiates Screen Urine Methadone Screen Acetaminophen < 5.0 L Ur Barbiturates Screen Ur Phencyclidine Scrn Ur Amphetamines Screen U Benzodiazepines Scrn Urine Cocaine Screen U Marijuana (THC) Screen Drugs of Abuse Note Plasma/Serum Alcohol 04/24/18 04/24/18 04/24/18 14:25 14:25 Unknown WBC 7.8 RBC 4.08 Hgb 14.1 Hct 39.0 MCV 96 MCH 35 H MCHC 36 H RDW 13.1 L Plt Count 194 Lymph % (Auto) 25.9 Fayette % (Auto) 6.4 Eos % (Auto) 0.7 Baso % (Auto) 1.9 H Lymph # 2.0 Fayette # 0.5 Eos # 0.1 Baso # 0.1 Seg Neutrophils % 65.1 Seg Neutrophils # 5.1 Sodium Potassium Chloride Carbon Dioxide Anion Gap BUN Creatinine Estimated GFR BUN/Creatinine Ratio Glucose Calcium Magnesium Urine Color Gilda Urine Turbidity Cloudy Urine pH 7.0 Ur Specific Crary 1.008 Urine Protein <15 mg/dl Urine Glucose (UA) Neg Urine Ketones Neg Urine Blood Neg Urine Nitrite Neg Urine Bilirubin Neg Urine Urobilinogen < 2.0 Ur Leukocyte Esterase Neg Urine WBC (Auto) 6.0 Urine RBC (Auto) 2.0 U Epithel Cells (Auto) 10.0 Urine Bacteria (Auto) 2+ Salicylates Urine Opiates Screen Urine Methadone Screen Acetaminophen Ur Barbiturates Screen Ur Phencyclidine Scrn Ur Amphetamines Screen U Benzodiazepines Scrn Urine Cocaine Screen U Marijuana (THC) Screen Drugs of Abuse Note Plasma/Serum Alcohol < 0.01 04/24/18 04/24/18 Unknown Unknown WBC RBC Hgb Hct MCV MCH MCHC RDW Plt Count Lymph % (Auto) F[place] % (Auto) Eos % (Auto) Baso % (Auto) Lymph # F[place] # Eos # Baso # Seg Neutrophils % Seg Neutrophils # Sodium Potassium Chloride Carbon Dioxide Anion Gap BUN Creatinine Estimated GFR BUN/Creatinine Ratio Glucose Calcium Magnesium 1.90 Urine Color Urine Turbidity Urine pH Ur Specific Crary Urine Protein Urine Glucose (UA) Urine Ketones Urine Blood Urine Nitrite Urine Bilirubin Urine Urobilinogen Ur Leukocyte Esterase Urine WBC (Auto) Urine RBC (Auto) U Epithel Cells (Auto) Urine Bacteria (Auto) Salicylates Urine Opiates Screen Presumptive negative Urine Methadone Screen Presumptive negative Acetaminophen Ur Barbiturates Screen Presumptive negative Ur Phencyclidine Scrn Presumptive negative Ur Amphetamines Screen Presumptive negative U Benzodiazepines Scrn Presumptive negative Urine Cocaine Screen Presumptive negative U Marijuana (THC) Screen Presumptive negative Drugs of Abuse Note Disclamer Plasma/Serum Alcohol Critical care attestation.: If time is entered above; I have spent that time in minutes in the direct care of this critically ill patient, excluding procedure time. ED Disposition Clinical Impression: Suicidal ideation, Hypokalemia Schizophrenia Qualifiers: Schizophrenia type: unspecified Qualified Code(s): F20.9 - Schizophrenia, uns pecified Disposition: DC/TX-65 PSY HOSP/PSY UNIT Is pt being admited?: No Does the pt Need Aspirin: No Condition: Stable Time of Disposition: 16:30
[2018-04-24] MEDS ORDERED: ALUM-MAG HYDROX-SIMETH 200-200-20MG/5ML PO PRN (16:28)
[2018-04-24] MEDS ORDERED: MILK OF MAGNESIA PO PRN (16:28)
[2018-04-24] MEDS ORDERED: TYLENOL PO PRN (16:28)
[2018-04-24] MEDS ORDERED: GEODON IM PRN (16:32)
[2018-04-24] MEDS ORDERED: RisperDAL PO SCH (22:00)
[2018-04-25 04:55] VITALS: BP 110/77
--- NOTE | 2018-04-25 12:28 | Consultation ---
History of Present Illness - Reason for Consult Consult date: 04/25/18 Reason for consult: Mental Health Evaluation Requesting physician: MATILDA SOLIMAN - Chief Complaint Chief complaint: "I'm hearing voices" - History of Present Psychiatric Illness 42 y.o. AA female who presented to the ER for "physical symptoms" secondary to AH's. This patient is known to me. Today the patient is calm, but guarded during the assessment. She did state that she is hearing voices that has increased the past several days. She stated that the voices have been an issue for her for a "very long times." She was asked several questions about her mental health and her "physical symptoms", but her answers were vague. She denies \\SI/Hi's and VH's. She stated that her sleep has been erratic, but denies a poor appetite. She denies recreational drug use and alcohol consumption (etoh). Medications and Allergies Allergies Allergy/AdvReac Type Severity Reaction Status Date / Time No Known Allergies Allergy Unverified 07/14/15 21:14 Home Medications Medication Instructions Recorded Confirmed Last Taken Type Ibuprofen [Motrin] 600 mg PO Q8H PRN #30 tablet 08/14/17 04/24/18 Unknown Rx Past psychiatric history - Past Medical History Past Medical History: other ( x 1) Past Surgical History: - past Psychiatric treatment and history psychiatric treatment history: Several inpatient psy settings in the past. Denies a fam psy hx. - Social History Social history: Lives alone Mental Status Exam - Vital signs Last Vital Signs Temp 98.9 F 04/25/18 06:00 Pulse 86 04/25/18 06:00 Resp 18 04/25/18 06:00 BP 110/77 04/25/18 06:00 Pulse Ox 98 04/25/18 06:00 - Exam Narrative exam: MSE: Appearance: calm Behavior: regular eye contact Speech: regular rate and tone Mood: withdrawn, guarded Affect: flat Thought Process: circumstantial Thought Content: denies SI/HI's and VH's Motor Activity: sitting up in bed Cognition: A/O x 3 Insight: variable Judgment: variable Results Result Diagrams: 04/24/18 14:25 04/24/18 14:25 Abnormal lab results 04/24/18 04/24/18 04/24/18 Range/Units 14:25 14:25 14:25 MCH (28-32) pg MCHC (30-34) % RDW (13.2-15.2) % Baso % (Auto) (0.0-1.8) % Potassium 3.2 L (3.6-5.0) mmol/L BUN 4 L (7-17) mg/dL Creatinine 0.6 L (0.7-1.2) mg/dL Glucose 112 H (65-100) mg/dL Salicylates < 0.3 L (2.8-20.0) mg/dL Acetaminophen < 5.0 L (10.0-30.0) ug/mL 04/24/18 Range/Units 14:25 MCH 35 H (28-32) pg MCHC 36 H (30-34) % RDW 13.1 L (13.2-15.2) % Baso % (Auto) 1.9 H (0.0-1.8) % Potassium (3.6-5.0) mmol/L BUN (7-17) mg/dL Creatinine (0.7-1.2) mg/dL Glucose (65-100) mg/dL Salicylates (2.8-20.0) mg/dL Acetaminophen (10.0-30.0) ug/mL All other labs normal. Assessment and Plan Assessment and plan: Impression: Unspecified Mood DO with psy features. Today the patient is calm and cooperative during the assessment. UDS is negative. DDx: Bipolar DO with psychosis, Schizoaffective DO, R/O MDD with psychosis Recommendation/Plan: Continue 1013. Dispo: The patient was accepted at [facility] for inpatient psy services. Will staff with Dr Regan
== END 2018-04-25 09:35 ==
LOC: ED 14:04 → EEVIPCON 14:04 → ED 04-25 09:34
DX: F20.9 Schizophrenia, unspecified (principal); E87.6 Hypokalemia; F32.9 Major depressive disorder, single episode, unspecified; F41.9 Anxiety disorder, unspecified; F17.200 Nicotine dependence, unspecified, uncomplicated
CPT/HCPCS: 36415; 80048; 80307; 81001; 83735; 85025; 99285; G0480; 80320

== ENCOUNTER 2021-02-20 09:03 | Emergency (ER) | payer MEDICAID ==
[2021-02-20 11:07] LABS: Basophils % (Auto) 0.5 % (0.0-1.8); Eosinophils % (Auto) 0.3 % (0.0-4.3); Hematocrit 41.2 % (30.3-42.9); Lymphocytes # (Auto) 2.2 K/mm3 (1.2-5.4); Lymphocytes % (Auto) 25.6 % (13.4-35.0); Mean Corpuscular HGB Conc 34 % (30-34); Mean Corpuscular Volume 94 fl (79-97); Monocytes # (Auto) 0.6 K/mm3 (0.0-0.8); Monocytes % (Auto) 6.7 % (0.0-7.3); Platelet Count 233 K/mm3 (140-440); Red Blood Count 4.39 M/mm3 (3.65-5.03); Red Cell Distribution Width 13.1 % (13.2-15.2)
[2021-02-20 11:11] LABS: Bilirubin,Urine NEG (Negative); Blood,Urine NEG (Negative); Color,Urine Yellow (Yellow); Protein,Urine <15 mg/dL mg/dL (Negative); Urobilinogen,Urine < 2.0 mg/dL (<2.0); WBC,Urine < 1.0 /HPF (0.0-6.0)
--- NOTE | 2021-02-20 11:12 | Emergency Department Report ---
ED Psych HPI - General Chief Complaint: Chest Pain Stated Complaint: MENTAL HEALTH Time Seen by Provider: 02/20/21 10:18 Source: patient Mode of arrival: Ambulatory - History of Present Illness Initial Comments: 45-year-old female, history of schizophrenia, anxiety, presents to ED for mental health evaluation. Patient reporting auditory hallucinations. Patient states, "I just can't take the voices. They're vexxing me. It's terrifying. They're telling me I'm not gonna make it." Patient states she is to the point where she is feeling suicidal because she cannot get rid of the voices. Patient states she has no plan to take all of her prescription medication. Patient reports she has been compliant with her medicine. She denies any alcohol or drug use. Patient also reported that she has been having some epigastric chest and suprapubic abdominal pain over the last month. MD Complaint: suicidal ideation, other (Auditory hallucinations) Associated Psychiatric Symptoms: suicidal ideation, auditory hallucinations Quality: constant Improves With: none Worsens With: none Associated Symptoms: other (Abdominal pain, chest pain) Treatments Prior to Arrival: none If Self Harm: has plan (Overdose on prescription medications) - Related Data Home Medications Medication Instructions Recorded Confirmed Last Taken OLANZapine [Zyprexa] 20 mg PO QHS 02/21/21 02/21/21 Unknown Quetiapine Fumarate [SEROquel] 50 mg PO QHS 02/21/21 02/21/21 Unknown Sertraline [Zoloft] 100 mg PO QHS 02/21/21 02/21/21 Unknown traZODone [Desyrel] 100 mg PO QHS 02/21/21 02/21/21 Unknown Allergies Allergy/AdvReac Type Severity Reaction Status Date / Time No Known Allergies Allergy Unverified 07/14/15 21:14 ED Review of Systems ROS: Stated complaint: MENTAL HEALTH Other details as noted in HPI Comment: All other systems reviewed and negative Respiratory: denies: shortness of breath Cardiovascular: chest pain Gastrointestinal: abdominal pain. denies: nausea, vomiting ED Past Medical Hx - Past Medical History Previous Medical History?: Yes Hx Psychiatric Treatment: Yes (schizophrenia, psychosis, depression, anxiety eleazar) - Surgical History Past Surgical History?: Yes Additional Surgical History: c sect X1 - Social History Smoking Status: Current Every Day Smoker Substance Use Type: None - Medications Home Medications: Home Medications Medication Instructions Recorded Confirmed Last Taken Type OLANZapine [Zyprexa] 20 mg PO QHS 02/21/21 02/21/21 Unknown History Quetiapine Fumarate [SEROquel] 50 mg PO QHS 02/21/21 02/21/21 Unknown History Sertraline [Zoloft] 100 mg PO QHS 02/21/21 02/21/21 Unknown History traZODone [Desyrel] 100 mg PO QHS 02/21/21 02/21/21 Unknown History ED Physical Exam - General Limitations: No Limitations General appearance: alert, in no apparent distress - Head Head exam: Present: atraumatic, normocephalic - Eye Eye exam: Present: normal appearance, EOMI - ENT ENT exam: Present: mucous membranes moist - Neck Neck exam: Present: normal inspection - Respiratory Respiratory exam: Present: normal lung sounds bilaterally. Absent: respiratory distress - Cardiovascular Cardiovascular Exam: Present: normal rhythm, tachycardia - GI/Abdominal GI/Abdominal exam: Present: soft. Absent: distended, tenderness - Extremities Exam Extremities exam: Present: normal inspection - Neurological Exam Neurological exam: Present: alert, oriented X3 - Psychiatric Psychiatric exam: Present: depressed - Skin Skin exam: Present: warm, dry, intact, normal color ED Course Vital Signs 02/20/21 02/20/21 02/20/21 09:17 11:00 18:34 Temperature 98.9 F Pulse Rate 107 H 96 H Respiratory 18 14 Rate Blood Pressure 132/79 Blood Pressure 138/72 [Left] O2 Sat by Pulse 100 98 100 Oximetry 02/20/21 02/21/21 20:21 11:14 Temperature 99.2 F 99.2 F Pulse Rate 82 66 Respiratory 18 66 H Rate Blood Pressure Blood Pressure 102/77 110/57 [Left] O2 Sat by Pulse 98 98 Oximetry ED Medical Decision Making - Lab Data Result diagrams: 02/20/21 10:36 02/20/21 15:54 - EKG Data -: EKG Interpreted by Me EKG shows normal: sinus rhythm, axis, QRS complexes, ST-T waves Rate: normal - EKG Data Interpretation: no acute changes, other (Prolonged QT) - Medical Decision Making 45-year-old female presents to ED with auditory hallucinations and suicidal ideation with plan to overdose on her prescription meds. Vital signs are stab le. Labs are unremarkable except for hypokalemia. P.o. potassium given for repletion. Patient is medically clear for mental health evaluation. Will dispo per psych. Critical care attestation.: If time is entered above; I have spent that time in minutes in the direct care of this critically ill patient, excluding procedure time. ED Disposition Clinical Impression: Hypokalemia, Schizophrenia, Suicidal ideation, Psychosis Disposition: [address] [place] [address] Is pt being admited?: No Condition: Stable Referrals: PRIMARY CARE, [Primary Care Provider] - 3-5 Days
[2021-02-20 11:21] LABS: Amphetamine Screen,Urine Negative; Benzodiazepines Screen,Urine Negative; Cannabinoid Screen,Urine Negative; Cocaine Screen,Urine Negative; Methadone Screen,Urine Negative; Opiate Screen,Urine Negative
[2021-02-20 11:24] LABS: HCG Qualitative,Urine Negative (Negative)
[2021-02-20 11:26] LABS: Alanine Aminotransferase 16 units/L (7-56); Albumin 4.4 g/dL (3.9-5); BUN/Creatinine Ratio 10; Blood Urea Nitrogen 6 mg/dL (7-17); Calcium 9.1 mg/dL (8.4-10.2); Hemolysis Index 8
[2021-02-20] MEDS ORDERED: POTASSIUM CHLORIDE ER 20 MEQ TAB PO ONE (11:38)
--- NOTE | 2021-02-20 11:48 | XRay Report ---
CHEST 2 VIEWS INDICATION / CLINICAL INFORMATION: chest pain. COMPARISON: 08/13/2017 FINDINGS: SUPPORT DEVICES: None. HEART / MEDIASTINUM: No significant abnormality. LUNGS / PLEURA: No significant pulmonary or pleural abnormality. No pneumothorax. ADDITIONAL FINDINGS: No significant additional findings. IMPRESSION: 1. No acute findings. Signer Name: Joshua Gallardo MD Signed: 02/20/2021 11:43 AM Workstation Name: [id number]
--- NOTE | 2021-02-20 12:55 | Consultation ---
History of Present Illness - Reason for Consult Consult date: 02/20/21 Reason for consult: SI - History of Present Psychiatric Illness ED Note: 45-year-old female, history of schizophrenia, anxiety, presents to ED for mental health evaluation. Patient reporting auditory hallucinations. Patient states, "I just can't take the voices. They're vexxing me. It's terrifying. They're telling me I'm not gonna make it." Patient states she is to the point where she is feeling suicidal because she cannot get rid of the voices. Patient states she has no plan to take all of her prescription medication. Patient reports she has been compliant with her medicine. She denies any alcohol or drug use. Patient also reported that she has been having some epigastric chest and suprapubic abdominal pain over the last month. Felisa López is a 45 year old female with history of Schizophrenia, Anxiety, Depression. In my interview with the patient, she endorses depression with symptoms such as hopelessness, helplessness, and suicidal ideation. The patient reports having auditory hallucinations that have worsened in the last one week stating voices saying " my life is not worth it, I'm not going to make it." She endorses suicidal ideation with a plan to over dose on pills. PAST PSYCHIATRIC HISTORY Diagnoses: Schizophrenia, Anxiety, Depression Suicide attempts or Self-harm behavior: Yes Prior psychiatric hospitalizations: Yes Substance Abuse history: Denies Previous psychiatric medications tried: Zyprexa, Seroquel, Trazodone, Zoloft Outpatient treatment: Denies PAST MEDICAL HISTORY: Family Psychiatric History: None reported or documented SOCIAL HISTORY Marital Status: Single Living Arrangements:Lives in long term Employment Status: unemployed Access to guns/weapons:Denies Education: Bachelors History of Abuse: Denies Legal History: Unknown REVIEW OF SYSTEMS Constitutional: Negative for weight loss ENT: Negative for stridor Respiratory: Negative for cough or hemoptysis All other systems reviewed and are negative MENTAL STATUS EXAMINATION General Appearance and Behavior: Age appropriate, good hygiene, wearing appropriate clothes, good eye contact, cooperative with questioning Cooperation: Participating/engaged Psychomotor Behavior: unremarkable and within normal limits Mood:Depressed Affect and affective range: congruent with mood Thought Process:Hallucinations Thought Content: Suicidal Speech: Normal volume, Regular rate and rhythm. Intellectual Functioning: Average Suicidal Ideation: Yes Homicidal Ideation: Denies Hallucinations: Auditory Delusions: None elicited Impulse Control: Limited Insight and Judgment: limited insight and poor judgment Memory: Normal Attention: Normal Orientation: Alert, oriented. Assessment and Plan (1) Schizophrenia Current Visit: No Status: Acute RECOMMENDATIONS continue 1013 Start Seroquel 50mg po QHS Start Seroquel 25mg po BID Start Zoloft 100mg po Daily Risks, benefits and alternatives of medications discussed with the patient, questions answered and consent obtained from patient. PSYCHOTHERAPY: Supportive psychotherapy provided MEDICAL: Per primary team DELIRIUM PRECAUTIONS: Please re-orient patient frequently, keep lights on during the day, and minimize benzodiazepines and opiates as these medications could worsen patient's confusion. NEONATAL SURGEON: non indicated DISPOSITION: Recommend acute inpatient psychiatric hospitalization at this time. FOLLOW-UP: Will follow. Thank you for the consult. Please contact with any questions and/or concerns. Medications and Allergies Allergies Medications and Allergies Medications and Allergies Allergies Allergy/AdvReac Type Severity Reaction Status Date / Time No Known Allergies Allergy Unverified 07/14/15 21:14 Home Medications Medication Instructions Recorded Confirmed Last Taken Type Ibuprofen [Motrin] 600 mg PO Q8H PRN #30 tablet 08/14/17 04/24/18 Unknown Rx Mental Status Exam - Vital signs Last Vital Signs Temp 98.9 F 02/20/21 09:17 Pulse 107 H 02/20/21 09:17 Resp 18 02/20/21 09:17 BP 132/79 02/20/21 09:17 Pulse Ox 98 02/20/21 11:00 Results Result Diagrams: 02/20/21 10:36 02/20/21 10:36 Abnormal lab results 02/20/21 02/20/21 02/20/21 Range/Units 10:36 10:36 10:36 RDW 13.1 L (13.2-15.2) % Potassium 2.4 L* (3.6-5.0) mmol/L BUN 6 L (7-17) mg/dL Urine pH (5.0-7.0) Salicylates < 0.3 L (2.8-20.0) mg/dL Acetaminophen (10.0-30.0) ug/mL 02/20/21 02/20/21 Range/Units 10:36 Unknown RDW (13.2-15.2) % Potassium (3.6-5.0) mmol/L BUN (7-17) mg/dL Urine pH 8.0 H (5.0-7.0) Salicylates (2.8-20.0) mg/dL Acetaminophen 5.0 L (10.0-30.0) ug/mL All other labs normal.
--- NOTE | 2021-02-20 13:12 | Electrocardiograph Report ---
[facility] Test Date: 2021-02-20 Test Time: 09:24:25 Pat Name: SWAPNA JACOBSON Department: Room: Gender: F El Teacher: RK : 1975 Requested By: ED DOC Order Number: [id number] Reading MD: Purnima Forrest Measurements Intervals Orange Rate: 76 P: 62 KS: 151 QRS: 29 QRSD: 90 T: 55 QT: 587 QTc: 661 Interpretive Statements Sinus rhythm Probable left atrial enlargement Prolonged QT interval Nonspecific T wave abnormality No previous ECG available for comparison Electronically Signed On 02-20-2021 13:12:41 EST by Purnima Forrest
[2021-02-20] MEDS: SERTRALINE 50 MG TAB PO SCH (16:40)
[2021-02-20] MEDS: QUEtiapine 25 MG TAB PO SCH ×2 (16:40→22:36)
[2021-02-20] MEDS ORDERED: QUEtiapine 25 MG TAB PO SCH (22:00)
--- NOTE | 2021-02-21 09:46 | Progress Note ---
Subjective - Reason for Consult Consult date: 02/21/21 Reason for consult: SI - Chief Complaint Chief complaint: The patient was seen this morning, she reports feeling better. She continues to have auditory hallucinations but denies suicidal/homicidal ideation. REVIEW OF SYSTEMS Constitutional: Negative for weight loss ENT: Negative for stridor Respiratory: Negative for cough or hemoptysis All other systems reviewed and are negative MENTAL STATUS EXAMINATION General Appearance and Behavior: Age appropriate, good hygiene, wearing appropriate clothes, good eye contact, cooperative with questioning Cooperation: Participating/engaged Psychomotor Behavior: unremarkable and within normal limits Mood:Depressed Affect and affective range: congruent with mood Thought Process:Hallucinations Thought Content: Suicidal Speech: Normal volume, Regular rate and rhythm. Intellectual Functioning: Average Suicidal Ideation: Yes Homicidal Ideation: Denies Hallucinations: Auditory Delusions: None elicited Impulse Control: Limited Insight and Judgment: limited insight and poor judgment Memory: Normal Attention: Normal Orientation: Alert, oriented. Assessment and Plan (1) Schizophrenia Current Visit: No Status: Acute RECOMMENDATIONS Discontinue 1013 Start Seroquel 50mg po QHS Start Seroquel 25mg po BID Start Zoloft 100mg po Daily Risks, benefits and alternatives of medications discussed with the patient, questions answered and consent obtained from patient. PSYCHOTHERAPY: Supportive psychotherapy provided MEDICAL: Per primary team DELIRIUM PRECAUTIONS: Please re-orient patient frequently, keep lights on during the day, and minimize benzodiazepines and opiates as these medications could worsen patient's confusion. TRANSPLANT REGISTERED NURSE: non indicated DISPOSITION: Do not recommend acute inpatient psychiatric hospitalization at this time. Library Circulation Department Chief will provide patient with safety plan and psychiatric out patient resources. FOLLOW-UP: Will sign off. Please contact with any questions and/or concerns. Medications and Allergies Allergies Mental Status Exam - Vital signs Last Vital Signs Temp 99.2 F 02/20/21 20:21 Pulse 82 02/20/21 20:21 Resp 18 02/20/21 20:21 BP 102/77 02/20/21 20:21 Pulse Ox 98 02/20/21 20:21
[2021-02-21] MEDS: QUEtiapine 25 MG TAB PO SCH (10:30)
[2021-02-21] MEDS: SERTRALINE 50 MG TAB PO SCH (10:32)
[2021-02-21 11:16] VITALS: BP 110/57
--- NOTE | 2021-02-21 11:23 | Emergency Department Report ---
Blank Doc - Documentation Documentation: Patient continues to have labile affect. She has improved. She is eating lunch at this point. Psych recommendations have been noted for ongoing evaluation and planned admission.
== END 2021-02-21 16:16 ==
LOC: ED 09:03
DX: E87.6 Hypokalemia (principal); F20.9 Schizophrenia, unspecified; R45.851 Suicidal ideations; F06.2 Psychotic disorder with delusions due to known physiological condition; Z20.822 Contact with and (suspected) exposure to COVID-19; F17.200 Nicotine dependence, unspecified, uncomplicated
CPT/HCPCS: 36415; 71046; 80053; 80307; 81001; 81025; 83735; 84132; 84484; 85025; 93005; 99284; U0003; 80320; G0480

== ENCOUNTER 2021-02-21 17:26 | Inpatient (IN) | payer MEDICAID ==
[2021-02-21] MEDS ORDERED: QUEtiapine 25 MG TAB PO ONE (23:45)
--- NOTE | 2021-02-22 07:23 | History and Physical Report ---
GP History & Physical - History of Present Illness Date of admission: 02/21/21 Date of Examination: 02/22/21 Reason for Admission: Danger to self History of Present Illness: The patient was seen in the ED:Swapna Jacobson is a 45 year old female with history of Schizophrenia, Anxiety, Depression. In my interview with the patient, she endorses depression with symptoms such as hopelessness, helplessness, and suicidal ideation. The patient reports having auditory hallucinations that have worsened in the last one week stating voices saying " my life is not worth it, I'm not going to make it." She endorses suicidal ideation with a plan to over dose on pills. The patient was seen this morning, she reports having negative thoughts. She continues to endorse auditory hallucinations stating " voices saying my efforts are not worth it, my life is over." She denies any current suicidal/homicidal ideation and denies visual hallucinations. PAST PSYCHIATRIC HISTORY Diagnoses: Schizophrenia, Anxiety, Depression Suicide attempts or Self-harm behavior: Yes Prior psychiatric hospitalizations: Yes Substance Abuse history: Denies Previous psychiatric medications tried: Zyprexa, Seroquel, Trazodone, Zoloft Outpatient treatment: Denies PAST MEDICAL HISTORY: unknown Family Psychiatric History: None reported or documented SOCIAL HISTORY Marital Status: Single Living Arrangements:Lives in a prison Employment Status: unemployed Access to guns/weapons:Denies Education: Bachelors History of Abuse: Denies Legal History: Unknown REVIEW OF SYSTEMS Constitutional: Negative for weight loss ENT: Negative for stridor Respiratory: Negative for cough or hemoptysis All other systems reviewed and are negative MENTAL STATUS EXAMINATION General Appearance and Behavior: Age appropriate, good hygiene, wearing appropriate clothes, good eye contact, cooperative with questioning Cooperation: Participating/engaged Psychomotor Behavior: unremarkable and within normal limits Mood:Depressed Affect and affective range: congruent with mood Thought Process:goal directed Thought Content: Not Suicidal Speech: Normal volume, Regular rate and rhythm. Intellectual Functioning: Average Suicidal Ideation: Denies Homicidal Ideation: Denies Hallucinations: Auditory Delusions: None elicited Impulse Control: Limited Insight and Judgment: limited insight and poor judgment Memory: Normal Attention: Normal Orientation: Alert, oriented. Assessment and Plan (1) Schizophrenia Treatment Plan Patient admitted for inpatient psychiatric evaluation, medication adjustment and close monitoring The patient's behavior, mood, sleep and appetite will be closely monitored. Patient enrolled in individual and group therapeutic sessions and encouraged to attend. Patient provided with a safe and structured environment. Patient's physical health needs will be addressed by the Hospitalist. Hospitalist Consulted Labs including CBC, CMP, Lipid profile and Hemoglobin A1C levels ordered for baseline reference Social Assessment will be completed and the President And Cmo will work with patient and family to ensure a suitable and safe disposition Medication adjustment will be made as clinically indicated Continue home medications Usual Wellness Caodaism/Preservation: - Start Trazodone 50 mg po QHS & 50 mg po QHS PRN between 10 PM & 2 AM for insomnia - Start Melatonin 5 mg po QHS to promote circadian rhythm The patient agreed on the treatment plan, understood the risk, benefit, alternative treatment, potential consequence of no treatment, and gave informed consent. Estimated days:7 Post hospital care: primary care provider, psychiatric provider Case staffed with Dr. Gabriel Legal Status: Involuntary Reaction to Hospitalization: Accepting Medications and Allergies Allergies Allergy/AdvReac Type Severity Reaction Status Date / Time No Known Allergies Allergy Unverified 07/14/15 21:14 Home Medications Medication Instructions Recorded Confirmed Last Taken Type OLANZapine [Zyprexa] 20 mg PO QHS 02/21/21 02/21/21 Unknown History Quetiapine Fumarate [SEROquel] 50 mg PO QHS 02/21/21 02/21/21 Unknown History Sertraline [Zoloft] 100 mg PO QHS 02/21/21 02/21/21 Unknown History traZODone [Desyrel] 100 mg PO QHS 02/21/21 02/21/21 Unknown History Results - Results Labs/Vitals: Last Vital Signs Temp Pulse 78 02/21/21 22:00 Resp 16 02/21/21 22:00 BP 125/84 02/21/21 18:53 Pulse Ox 97 02/21/21 22:00 Physical Examination - Constitutional Vitals: Vital Signs Temp Pulse Resp BP Pulse Ox 78 16 125/84 97 02/21/21 22:00 02/21/21 22:00 02/21/21 18:53 02/21/21 22:00 Mental Status Exam - Vital signs Last Vital Signs Temp Pulse 78 02/21/21 22:00 Resp 16 02/21/21 22:00 BP 125/84 02/21/21 18:53 Pulse Ox 97 02/21/21 22:00 Physician Certification - Certification Statement Physician Certification Statement: This is an acknowledgement statement that SWAPNA JACOBSON is a 45 year old F who requires inpatient psychiatric admission for treatment which could reasonably be expected to improve the patient's condition for Estimated period of time patient will need to remain in the hospital: [ ] Plan for post-hospital care: [ ]
[2021-02-22] MEDS: QUEtiapine 25 MG TAB PO SCH ×2 (10:41→21:47)
--- NOTE | 2021-02-22 10:43 | Consultation ---
History of Present Illness - Reason for Consult Consult date: 02/22/21 Medical manage - History of Present Illness Felisa López is a 45 year old female with history of Schizophrenia, Anxiety, Depression who presented to the [facility] with feelings of depression and symptoms such as hopelessness, helplessness, and suicidal ideation. The patient reported having auditory hallucinations that have worsened in the past week and has had suicidal ideations with a plan to over dose on pills. Consultation to the hospitalist team for medical management. Patient denies any medical issues and no past medical history. Patient denies any medications. Past History Past Medical History: No medical history Past Surgical History: No surgical history Social history: no significant social history Family history: no significant family history Medications and Allergies Allergies Allergy/AdvReac Type Severity Reaction Status Date / Time No Known Allergies Allergy Unverified 07/14/15 21:14 Home Medications Medication Instructions Recorded Confirmed Last Taken Type OLANZapine [Zyprexa] 20 mg PO QHS 02/21/21 02/21/21 Unknown History Quetiapine Fumarate [SEROquel] 50 mg PO QHS 02/21/21 02/21/21 Unknown History Sertraline [Zoloft] 100 mg PO QHS 02/21/21 02/21/21 Unknown History traZODone [Desyrel] 100 mg PO QHS 02/21/21 02/21/21 Unknown History Active Meds: Active Medications Olanzapine (Olanzapine 10 Mg Tab) 20 mg PO QHS [facility] Quetiapine Fumarate (Quetiapine 25 Mg Tab) 50 mg PO QHS [facility] Quetiapine Fumarate (Quetiapine 25 Mg Tab) 25 mg PO BID [facility] Sertraline HCl (Sertraline 100 Mg Tab) 100 mg PO QHS [facility] Trazodone HCl (Trazodone 100 Mg Tab) 100 mg PO QHS [facility] Review of Systems All systems: negative Exam - Constitutional Vitals: Temp Pulse Resp BP Pulse Ox 78 16 125/84 97 02/21/21 22:00 02/21/21 22:00 02/21/21 18:53 02/21/21 22:00 General appearance: Present: no acute distress, well-nourished - EENT Eyes: Present: PERRL ENT: hearing intact, clear oral mucosa - Neck Neck: Present: supple, normal ROM - Respiratory Respiratory effort: normal Respiratory: bilateral: CTA - Cardiovascular Heart Sounds: Present: S1 & S2. Absent: rub, click - Extremities Extremities: pulses symmetrical, No edema Peripheral Pulses: within normal limits - Abdominal General gastrointestinal: Present: soft, non-tender, non-distended, normal bowel sounds Female genitourinary: Present: normal - Integumentary Integumentary: Present: clear, warm, dry - Musculoskeletal Musculoskeletal: gait normal, strength equal bilaterally - Psychiatric Psychiatric: appropriate mood/affect, intact judgment & insight - Neurologic Neurologic: CNII-XII intact, moves all extremities Assessment and Plan Schizophrenia Anxiety Depression 02/22/2021. Patient denies any past medical history or any medical problems other than her psychiatric history. We will check baseline labs with CBC and BMP.
[2021-02-22] MEDS: traZODone 100 MG TAB PO SCH (21:44)
[2021-02-22] MEDS: SERTRALINE 100 MG TAB PO SCH (21:45)
[2021-02-22] MEDS ORDERED: QUEtiapine 25 MG TAB PO SCH (22:00)
--- NOTE | 2021-02-23 09:01 | Progress Note ---
Subjective Date of service: 02/23/21 Subjective Comment: 02/23/21:The patient was seen this morning, she continues to endorse depression. She states mood as " melancholy." She reports sleep and appetitie as good. She continues to hear voices. The patient denies any current suicidal/homicidal i deation and denies visual hallucinations. REVIEW OF SYSTEMS Constitutional: Negative for weight loss ENT: Negative for stridor Respiratory: Negative for cough or hemoptysis All other systems reviewed and are negative MENTAL STATUS EXAMINATION General Appearance and Behavior: Age appropriate, good hygiene, wearing appropriate clothes, good eye contact, cooperative with questioning Cooperation: Participating/engaged Psychomotor Behavior: unremarkable and within normal limits Mood:"melancholy" Affect and affective range: congruent with mood Thought Process:goal directed Thought Content: Not Suicidal Speech: Normal volume, Regular rate and rhythm. Intellectual Functioning: Average Suicidal Ideation: Denies Homicidal Ideation: Denies Hallucinations: Auditory Delusions: None elicited Impulse Control: Limited Insight and Judgment: limited insight and poor judgment Memory: Normal Attention: Normal Orientation: Alert, oriented. Assessment and Plan (1) Schizophrenia Treatment Plan Patient admitted for inpatient psychiatric evaluation, medication adjustment and close monitoring The patient's behavior, mood, sleep and appetite will be closely monitored. Patient enrolled in individual and group therapeutic sessions and encouraged to attend. Patient provided with a safe and structured environment. Patient's physical health needs will be addressed by the Hospitalist. Hospitalist Consulted Labs including CBC, CMP, Lipid profile and Hemoglobin A1C levels ordered for baseline reference Social Assessment will be completed and the Embedded Software Design Engineer will work with patient and family to ensure a suitable and safe disposition Medication adjustment will be made as clinically indicated Continue home medications Usual Wellness Nondenominational/Preservation: - Start Trazodone 50 mg po QHS & 50 mg po QHS PRN between 10 PM & 2 AM for insomnia - Start Melatonin 5 mg po QHS to promote circadian rhythm The patient agreed on the treatment plan, understood the risk, benefit, alternative treatment, potential consequence of no treatment, and gave informed consent. Estimated days:6 Post hospital care: primary care provider, psychiatric provider Case staffed with Dr. Gabriel Legal Status: Involuntary Reaction to Hospitalization: Accepting Medications and Allergies Medications and Allergies Allergies Allergy/AdvReac Type Severity Reaction Status Date / Time No Known Allergies Allergy Unverified 07/14/15 21:14 Home Medications Medication Instructions Recorded Confirmed Last Taken Type OLANZapine [Zyprexa] 20 mg PO QHS 02/21/21 02/21/21 Unknown History Quetiapine Fumarate [SEROquel] 50 mg PO QHS 02/21/21 02/21/21 Unknown History Sertraline [Zoloft] 100 mg PO QHS 02/21/21 02/21/21 Unknown History traZODone [Desyrel] 100 mg PO QHS 02/21/21 02/21/21 Unknown History Active Meds: Active Medications [facility] Mg [facility] Admin: 02/22/21 21:45 Dose: 20 mg Documented by: Quetiapine Fumarate (Qu[facility]apine 25 Mg Tab) [facility] Last Admin: 02/22/21 21:45 Dose: 50 mg Documented by: Quetiapine Fumarate (Quetiapine 25 Mg Tab) 25 mg PO 0900,1200 [facility] Sertraline HCl ([facility]ine 100 Mg Tab) [facility] Last Admin: 02/22/21 21:45 Dose: 100 mg Documented by: Trazodone HCl (Trazodone 100 Mg Tab) [facility] Last Admin: 02/22/21 21:44 Dose: 100 mg Documented by: Results - Results Labs/Vitals: Laboratory Last Values POC Glucose 94 mg/dL (70-105) 02/22/21 07:34 Last Vital Signs Temp 99.2 F 02/22/21 19:42 Pulse 77 02/22/21 19:42 Resp 16 02/22/21 19:42 BP 131/84 02/22/21 19:42 Pulse Ox 99 02/22/21 19:42
[2021-02-23] MEDS: QUEtiapine 25 MG TAB PO SCH ×2 (12:16→14:59)
[2021-02-23 15:44] LABS: Basophils % (Auto) 0.6 % (0.0-1.8); Eosinophils # (Auto) 0.1 K/mm3 (0.0-0.4); Eosinophils % (Auto) 1.5 % (0.0-4.3); Hematocrit 39.7 % (30.3-42.9); Hemoglobin 13.3 gm/dl (10.1-14.3); Lymphocytes # (Auto) 2.5 K/mm3 (1.2-5.4); Lymphocytes % (Auto) 38.1 % (13.4-35.0); Mean Corpuscular HGB Conc 34 % (30-34); Mean Corpuscular Volume 96 fl (79-97); Monocytes # (Auto) 0.5 K/mm3 (0.0-0.8); Monocytes % (Auto) 8.1 % (0.0-7.3); Platelet Count 210 K/mm3 (140-440); Red Blood Count 4.14 M/mm3 (3.65-5.03); Red Cell Distribution Width 13.3 % (13.2-15.2)
[2021-02-23 16:00] LABS: Blood Urea Nitrogen 12 mg/dL (7-17); Calcium 9.4 mg/dL (8.4-10.2); Hemolysis Index 5
[2021-02-23 16:02] LABS: BUN/Creatinine Ratio 20
[2021-02-23 16:13] LABS: Hepatitis C Virus Antibody Non-Reactive (NonReactive)
[2021-02-23 16:27] LABS: Hepatitis B Surface Antigen Negative (Negative)
[2021-02-23] MEDS: SERTRALINE 100 MG TAB PO SCH (21:25)
[2021-02-23] MEDS: QUEtiapine 100 MG TAB PO SCH (21:25)
[2021-02-23] MEDS: traZODone 100 MG TAB PO SCH (21:26)
--- NOTE | 2021-02-24 09:32 | Progress Note ---
Subjective Date of service: 02/24/21 Subjective Comment: 02/23/21:The patient was seen this morning, she continues to endorse depression. She states mood as " melancholy." She reports sleep and appetite as good. She continues to hear voices. The patient denies any current suicidal/homicidal anika ation and denies visual hallucinations. 02/24/21: The patient was seen in her room today, she is in high spirits. The patient reports doing well, stating that medication is working for her. She continues to have intermittent auditory hallucinations. The patient denies any current suicidal/homicidal ideation and denies visual hallucinations. REVIEW OF SYSTEMS Constitutional: Negative for weight loss ENT: Negative for stridor Respiratory: Negative for cough or hemoptysis All other systems reviewed and are negative MENTAL STATUS EXAMINATION General Appearance and Behavior: Age appropriate, good hygiene, wearing appropriate clothes, good eye contact, cooperative with questioning Cooperation: Participating/engaged Psychomotor Behavior: unremarkable and within normal limits Mood:"good" Affect and affective range: congruent with mood Thought Process:goal directed Thought Content: Not Suicidal Speech: Normal volume, Regular rate and rhythm. Intellectual Functioning: Average Suicidal Ideation: Denies Homicidal Ideation: Denies Hallucinations: Auditory intermittent Delusions: None elicited Impulse Control: Limited Insight and Judgment: limited insight and good judgment Memory: Normal Attention: Normal Orientation: Alert, oriented. Assessment and Plan (1) Schizophrenia Treatment Plan Patient admitted for inpatient psychiatric evaluation, medication adjustment and close monitoring The patient's behavior, mood, sleep and appetite will be closely monitored. Patient enrolled in individual and group therapeutic sessions and encouraged to attend. Patient provided with a safe and structured environment. Patient's physical health needs will be addressed by the Hospitalist. Hospitalist Consulted Labs including CBC, CMP, Lipid profile and Hemoglobin A1C levels ordered for baseline reference Social Assessment will be completed and the Home Hospice Rn will work with patient and family to ensure a suitable and safe disposition Medication adjustment will be made as clinically indicated Continue home medications Usual Wellness Gnosticism/Preservation: - Start Trazodone 50 mg po QHS & 50 mg po QHS PRN between 10 PM & 2 AM for insomnia - Start Melatonin 5 mg po QHS to promote circadian rhythm The patient agreed on the treatment plan, understood the risk, benefit, alternative treatment, potential consequence of no treatment, and gave informed consent. Estimated days:6 Post hospital care: primary care provider, psychiatric provider Case staffed with Dr. Gabriel Legal Status: Involuntary Reaction to Hospitalization: Accepting Medications and Allergies Medications and Allergies Allergies Allergy/AdvReac Type Severity Reaction Status Date / Time No Known Allergies Allergy Unverified 07/14/15 21:14 Home Medications Medication Instructions Recorded Confirmed Last Taken Type OLANZapine [Zyprexa] 20 mg PO QHS 02/21/21 02/21/21 Unknown History Quetiapine Fumarate [SEROquel] 50 mg PO QHS 02/21/21 02/21/21 Unknown History Sertraline [Zoloft] 100 mg PO QHS 02/21/21 02/21/21 Unknown History traZODone [Desyrel] 100 mg PO QHS 02/21/21 02/21/21 Unknown History Active Meds: Active Medications [facility] ([facility] Mg Tab[facility] Admin: 02/23/21 21:25 Dose: 20 mg Documented by: Quetiapine Fumarate (Quetiapine 25 Mg Tab) 25 mg PO 0900,1200 [facility] Last Admin: 02/23/21 14:59 Dose: 25 mg Documented by: Quetiapine Fumarate (Quetiapine 100 Mg Tab) 50 mg PO QHS [facility] Last Admin: 02/23/21 21:25 Dose: 50 mg Documented by: Sertraline HCl (Sertraline 100 Mg Tab) [facility] Admin: 02/23/21 21:25 Dose: 100 mg Documented by: Trazodone HCl (Trazodone 100 Mg Tab) [facility] Last Admin: 02/23/21 21:26 Dose: 100 mg Documented by: Results - Results Labs/Vitals: Laboratory Last Values WBC 6.6 K/mm3 (4.5-11.0) 02/23/21 14:53 RBC 4.14 M/mm3 (3.65-5.03) 02/23/21 14:53 Hgb 13.3 gm/dl (10.1-14.3) 02/23/21 14:53 Hct 39.7 % (30.3-42.9) 02/23/21 14:53 MCV 96 fl (79-97) 02/23/21 14:53 MCH 32 pg (28-32) 02/23/21 14:53 MCHC 34 % (30-34) 02/23/21 14:53 RDW 13.3 % (13.2-15.2) 02/23/21 14:53 Plt Count 210 K/mm3 (140-440) 02/23/21 14:53 Lymph % (Auto) 38.1 % (13.4-35.0) H 02/23/21 14:53 [place] % (Auto) 8.1 % (0.0-7.3) H 02/23/21 14:53 Eos % (Auto) 1.5 % (0.0-4.3) 02/23/21 14:53 Baso % (Auto) 0.6 % (0.0-1.8) 02/23/21 14:53 Lymph # (Auto) 2.5 K/mm3 (1.2-5.4) 02/23/21 14:53 [place] # (Auto) 0.5 K/mm3 (0.0-0.8) 02/23/21 14:53 Eos # (Auto) 0.1 K/mm3 (0.0-0.4) 02/23/21 14:53 Baso # (Auto) 0.0 K/mm3 (0.0-0.1) 02/23/21 14:53 Seg Neutrophils % 51.7 % (40.0-70.0) 02/23/21 14:53 Seg Neutrophils # 3.4 K/mm3 (1.8-7.7) 02/23/21 14:53 Sodium 143 mmol/L (137-145) 02/23/21 14:53 Potassium 3.5 mmol/L (3.6-5.0) L 02/23/21 14:53 Chloride 106.3 mmol/L (98-107) 02/23/21 14:53 Carbon Dioxide 26 mmol/L (22-30) 02/23/21 14:53 Anion Gap 14 mmol/L 02/23/21 14:53 BUN 12 mg/dL (7-17) 02/23/21 14:53 Creatinine 0.6 mg/dL (0.6-1.2) 02/23/21 14:53 Estimated GFR > 60 ml/min 02/23/21 14:53 BUN/Creatinine Ratio 20 % 02/23/21 14:53 Glucose 88 mg/dL (65-100) 02/23/21 14:53 POC Glucose 94 mg/dL (70-105) 02/22/21 07:34 Calcium 9.4 mg/dL (8.4-10.2) 02/23/21 14:53 TSH 0.384 mlU/mL (0.270-4.200) 02/23/21 14:53 Hepatitis A IgM Ab Non-reactive (NonReactive) 02/23/21 14:53 Hep Bs Antigen Negative (Negative) 02/23/21 14:53 Hep B Core IgM Ab Non-reactive (NonReactive) 02/23/21 14:53 Hepatitis C Antibody Non-reactive (NonReactive) 02/23/21 14:53 Last Vital Signs Temp 99.2 F 02/22/21 19:42 Pulse 77 02/22/21 19:42 Resp 16 02/22/21 19:42 BP 131/84 02/22/21 19:42 Pulse Ox 99 02/22/21 19:42
[2021-02-24] MEDS: QUEtiapine 25 MG TAB PO SCH ×2 (10:16→13:20)
[2021-02-24] MEDS: QUEtiapine 100 MG TAB PO SCH (21:46)
[2021-02-24] MEDS: SERTRALINE 100 MG TAB PO SCH (21:46)
[2021-02-24] MEDS: traZODone 100 MG TAB PO SCH (21:46)
[2021-02-25 04:21] VITALS: BP 124/77
--- NOTE | 2021-02-25 07:59 | Discharge Summary ---
Providers - Providers Date of Admission: 02/21/21 17:26 Date of discharge: 02/25/21 Attending physician: TRENA DAILEY MD 02/21/21 18:01 Consult to Physician [CONS] Routine Comment: Consulting Provider: AVELINA GAYLE Physician Instructions: Reason For Exam: Manage existing conditions Primary care physician: [facility] [employer] Hospitalization Reason for admission: Suicidal ideation/ auditory hallucinations Condition: Stable Hospital course: The patient was provided inpatient psychiatric treatment with safe and supportive environment, group/individual therapy, psychiatric medication, medication adjustment, adverse effect monitor, medical evaluation, medical treatment, social service assessment, social support meeting, placement assessment and psycho-education. The patients mood, cognition, behavior, motivation, compliance to treatment and appreciation on family/social support are improved and stabilized. At the time of discharge, the patient had no suicidal ideas, no homicidal ideas, no aggressive thoughts, no endangering behavior and no debilitating adverse effects. The patient agreed on the treatment plan, understood the risk, benefit, alternative treatment, potential consequence of no treatment, and gave informed consent. Progress note: 02/23/21:The patient was seen this morning, she continues to endorse depression. She states mood as " melancholy." She reports sleep and appetite as good. She continues to hear voices. The patient denies any current suicidal/homicidal ideation and denies visual hallucinations. 02/24/21: The patient was seen in her room today, she is in high spirits. The patient reports doing well, stating that medication is working for her. She continues to have intermittent auditory hallucinations. The patient denies any current suicidal/homicidal ideation and denies visual hallucinations. Disposition: HOME / SELF CARE / HOMELESS Allergies/Adverse Reactions: Allergies No Known Allergies Allergy (Unverified 07/14/15 21:14) Vital Signs: Last Vital Signs Temp 98.7 F 02/24/21 20:26 Pulse 83 02/24/21 20:26 Resp 14 02/24/21 20:26 BP 124/77 02/24/21 20:26 Pulse Ox 98 02/24/21 20:26 Last Lab: Laboratory Last Values WBC 6.6 K/mm3 (4.5-11.0) 02/23/21 14:53 RBC 4.14 M/mm3 (3.65-5.03) 02/23/21 14:53 Hgb 13.3 gm/dl (10.1-14.3) 02/23/21 14:53 Hct 39.7 % (30.3-42.9) 02/23/21 14:53 MCV 96 fl (79-97) 02/23/21 14:53 MCH 32 pg (28-32) 02/23/21 14:53 MCHC 34 % (30-34) 02/23/21 14:53 RDW 13.3 % (13.2-15.2) 02/23/21 14:53 Plt Count 210 K/mm3 (140-440) 02/23/21 14:53 Lymph % (Auto) 38.1 % (13.4-35.0) H 02/23/21 14:53 [place] % (Auto) 8.1 % (0.0-7.3) H 02/23/21 14:53 Eos % (Auto) 1.5 % (0.0-4.3) 02/23/21 14:53 Baso % (Auto) 0.6 % (0.0-1.8) 02/23/21 14:53 Lymph # (Auto) 2.5 K/mm3 (1.2-5.4) 02/23/21 14:53 [place] # (Auto) 0.5 K/mm3 (0.0-0.8) 02/23/21 14:53 Eos # (Auto) 0.1 K/mm3 (0.0-0.4) 02/23/21 14:53 Baso # (Auto) 0.0 K/mm3 (0.0-0.1) 02/23/21 14:53 Seg Neutrophils % 51.7 % (40.0-70.0) 02/23/21 14:53 Seg Neutrophils # 3.4 K/mm3 (1.8-7.7) 02/23/21 14:53 Sodium 143 mmol/L (137-145) 02/23/21 14:53 Potassium 3.5 mmol/L (3.6-5.0) L 02/23/21 14:53 Chloride 106.3 mmol/L (98-107) 02/23/21 14:53 Carbon Dioxide 26 mmol/L (22-30) 02/23/21 14:53 Anion Gap 14 mmol/L 02/23/21 14:53 BUN 12 mg/dL (7-17) 02/23/21 14:53 Creatinine 0.6 mg/dL (0.6-1.2) 02/23/21 14:53 Estimated GFR > 60 ml/min 02/23/21 14:53 BUN/Creatinine Ratio 20 % 02/23/21 14:53 Glucose 88 mg/dL (65-100) 02/23/21 14:53 POC Glucose 94 mg/dL (70-105) 02/22/21 07:34 Calcium 9.4 mg/dL (8.4-10.2) 02/23/21 14:53 TSH 0.384 mlU/mL (0.270-4.200) 02/23/21 14:53 Hepatitis A IgM Ab Non-reactive (NonReactive) 02/23/21 14:53 Hep Bs Antigen Negative (Negative) 02/23/21 14:53 Hep B Core IgM Ab Non-reactive (NonReactive) 02/23/21 14:53 Hepatitis C Antibody Non-reactive (NonReactive) 02/23/21 14:53 Core Measure Documentation - Palliative Care Palliative Care/ Comfort Measures: Not Applicable - Core Measures Any of the following diagnoses?: none Exam - Constitutional Vitals: Temp Pulse Resp BP Pulse Ox 98.7 F 83 14 124/77 98 02/24/21 20:26 02/24/21 20:26 02/24/21 20:26 02/24/21 20:26 02/24/21 20:26 Plan Activity: advance as tolerated Weight Bearing Status: Weight Bear as Tolerated Diet: regular Care Plan Goals: Maintain good and stable mental health. Plan of Treatment: The patient should be compliant with medications, not to use drugs and not to drink alcohol. The patient understands that if suicidal ideas, homicidal ideas, or any endangering thoughts/behavior arise, they should immediately seek for emergent assistance including but not limited to crisis hot line and emergency room. Follow up with outpatient Psychiatrist and PCP within 7 - 14 days of discharge. Follow up with: PRIMARY CARE,MD [Primary Care Provider] - 7 Days Prescriptions: traZODone [Desyrel] 100 mg PO QHS 30 Days #30 tablet QUEtiapine [SEROquel] 50 mg PO QHS 30 Days #30 tablet Sertraline [Zoloft] 100 mg PO QHS 30 Days #30 OLANZapine [Zyprexa] 20 mg PO QHS 30 Days #30 QUEtiapine [SEROquel] 25 mg PO 0900,1200 30 Days #60 tablet
[2021-02-25] MEDS: QUEtiapine 25 MG TAB PO SCH (09:57)
== END 2021-02-25 12:15 | disposition home or self-care (01) | DRG 885 ==
LOC: 5A 17:26
PROVIDERS: ADMIT Psychiatry & Neurology Psychiatry; ATTEND Psychiatry & Neurology Psychiatry
DX: F20.9 Schizophrenia, unspecified (principal); F41.9 Anxiety disorder, unspecified; F32.9 Major depressive disorder, single episode, unspecified; Z20.822 Contact with and (suspected) exposure to COVID-19
CPT/HCPCS: 80048; 80074; 82962; 84443; 85025; G0378